=== PATIENT | female | born 1955 | race Caucasian/White ===

== ENCOUNTER 2016-11-04 11:41 | Observation (INO) | payer BC ==
[2016-11-06] MEDS ORDERED: BYSTOLIC5 MG PO (12:17)
[2016-11-06] MEDS ORDERED: HYDROCHLOROTHIA25 MG PO (12:17)
[2016-11-06] MEDS ORDERED: VITAMIN D35000 UNI1 PO (12:17)
[2016-11-06] MEDS ORDERED: GLUCOPHAGE-DPS500 MG PO (12:17)
[2016-11-06] MEDS ORDERED: ZYRTEC DPS10 MG PO (12:17)
[2016-11-06] MEDS ORDERED: FIORICET DPS1 TAB PO (12:18)
[2016-11-06] MEDS ORDERED: FLONASE 0.05% D16 GM NS (12:18)
[2016-11-06] MEDS ORDERED: TIZANIDINE HCL2 MG PO (12:18)
[2016-11-06] MEDS ORDERED: PAMELOR DPS50 MG PO (12:18)
[2016-11-06] MEDS ORDERED: RELAFEN DPS750 MG PO (12:18)
[2016-11-06] MEDS ORDERED: FAMVIR500 MG PO (12:19)
[2016-11-06] MEDS ORDERED: PROVENTIL HFA6.7 GM IH (12:19)
[2016-11-06] MEDS ORDERED: FINACEA50 GM TP (12:19)
[2016-11-06] MEDS ORDERED: ANUSOL-HC30 GM PR (12:19)
[2016-11-06] MEDS ORDERED: DENTIVA SOFT L1 EACH PO (12:20)
[2016-11-06] MEDS ORDERED: MIRALAX PACKET17 GM PO (12:20)
[2016-11-06] MEDS ORDERED: ASA CHILDREN'S81 MG PO (12:20)
[2016-11-06] MEDS ORDERED: ZANTAC DPS150 MG PO (12:20)
== END 2016-11-05 10:30 | disposition home or self-care (01) ==
DX: R07.2 Precordial pain (principal); I10 Essential (primary) hypertension; E11.9 Type 2 diabetes mellitus without complications; M79.7 Fibromyalgia; J45.909 Unspecified asthma, uncomplicated; K21.9 Gastro-esophageal reflux disease without esophagitis; E78.00 Pure hypercholesterolemia, unspecified; E55.9 Vitamin D deficiency, unspecified; Z86.711 Personal history of pulmonary embolism; Z90.710 Acquired absence of both cervix and uterus; Z98.890 Other specified postprocedural states